=== PATIENT | male | born 1990 | race Two or more races ===

== ENCOUNTER 2021-04-02 20:54 | Emergency (ER) | payer SELFPAY ==
[~2021-04-02] VITALS: Ht 172.7 cm; Wt 90.0 kg
[2021-04-02 21:13] VITALS: BP 131/83
== END 2021-04-03 03:11 | disposition left against medical advice (07) ==
LOC: ER 20:54
DX: R51.9 Headache, unspecified (principal); Z53.21 Procedure and treatment not carried out due to patient leaving prior to being seen by health care provider